=== PATIENT | male | born 1980 | race Caucasian/White ===

== ENCOUNTER 2016-08-31 12:27 | Emergency (ER) | payer OTHER ==
[~2016-08-31] VITALS: Ht 185.4 cm; Wt 72.6 kg
[~2016-08-31 12:27] MED LIST: NAPROSYN500 MG PO; NOHOMEMEDICATIONS; NORCO 5-325 TA1 EACH PO; PEPCID40 MG PO
[2016-08-31 12:40] LABS: URINE BILIRUBIN NEGATIVE (Negative); URINE BLOOD NEGATIVE (Negative); URINE COLOR YELLOW; URINE GLUCOSE-RANDOM* NEGATIVE (Negative); URINE KETONES NEGATIVE (Negative); URINE NITRITE NEGATIVE (Negative); URINE PROTEIN (DIPSTICK) TRACE (Negative); URINE UROBILINOGEN 0.2 E.U./dl (0.2-1.0)
[2016-08-31 13:21] LABS: ABSOLUTE NEUTROPHILS 8.5 thou/uL (1.4-8.2); BASOPHILS 0.3 % (0.0-2.0); EOSINOPHILS 1.7 % (0.0-3.0); HEMOGLOBIN 14.9 gm/dL (14.0-18.0); LYMPHOCYTES 10.8 % (24.0-44.0); MCH 30.9 pg (26.0-34.0); MCHC 33.9 g/dL (28.0-37.0); MCV 91.1 fL (80.0-100.0); MONOCYTES 6.3 % (1.0-8.0); PLATELET COUNT 158 thou/uL (150-400); POLYS 80.9 % (36.0-66.0); RBC 4.84 mil/uL (4.50-6.00); RDW 13.8 % (10.5-14.5); WBC 10.5 thou/uL (4.0-11.0)
[2016-08-31 13:24] LABS: MANUAL DIFF NO
[2016-08-31 13:30] LABS: CALCIUM 8.2 mg/dL (8.5-10.1)
[2016-08-31 13:34] LABS: ALBUMIN 3.8 g/dL (3.4-5.0); TOTAL BILIRUBIN 0.9 mg/dL (<0.1-1.0); TOTAL PROTEIN 6.8 g/dL (6.4-8.2)
[2016-08-31] MEDS ORDERED: XANAX1 MG PO (14:08)
[2016-08-31] MEDS ORDERED: BUPRENORPHINE HC8 MG SL (14:10)
[2016-08-31] MEDS ORDERED: PEPCID AC20 MG PO (14:23)
[2016-08-31] MEDS ORDERED: CARAFATE 1 GM TA1 G1 PO (14:23)
[2016-08-31 14:29] VITALS: BP 119/79
== END 2016-08-31 14:38 | disposition home or self-care (01) ==
LOC: ER 12:27
PROVIDERS: Physician Assistant
DX: K85.90 Acute pancreatitis without necrosis or infection, unspecified (principal); K29.70 Gastritis, unspecified, without bleeding; F17.210 Nicotine dependence, cigarettes, uncomplicated; Z71.6 Tobacco abuse counseling